=== PATIENT | female | born 1990 | race Two or more races ===

== ENCOUNTER 2020-08-19 19:40 | Inpatient (IN) | payer OTHER ==
[~2020-08-19] VITALS: Ht 165.1 cm; Wt 59.0 kg
[2020-08-19] MEDS ORDERED: PHOSPHASAL TAB1 EACH (19:54)
[2020-08-19] MEDS ORDERED: BACTRIM 400-801 EACH (19:55)
[2020-08-25] MEDS ORDERED: TRIAMCINOLONE AC5 GM TOP (08:52)
[2020-08-25] MEDS ORDERED: LORATADINE10 MG PO (08:52)
[2020-08-25] MEDS ORDERED: MEDROLPACK PO (08:52)
[2020-08-25] MEDS ORDERED: LUBRIDERM DAIL177 ML TOP (08:52)
[2020-08-25] MEDS ORDERED: FAMOTIDINE20 MG PO (08:52)
== END 2020-08-25 11:06 | disposition home or self-care (01) | DRG 690 ==
LOC: ER 19:40 → MEDJ 08-20 11:48 → SEC-K 08-20 11:48 → MEDJ 08-20 13:14
PROVIDERS: ADMIT Internal Medicine; ATTEND Internal Medicine
PROC: 8E0ZXY6 Isolation (ICD-10-PCS; principal; 2020-08-20)
DX: N39.0 Urinary tract infection, site not specified (principal); L51.3 Stevens-Johnson syndrome-toxic epidermal necrolysis overlap syndrome; Z20.822 Contact with and (suspected) exposure to COVID-19; I34.1 Nonrheumatic mitral (valve) prolapse

== ENCOUNTER 2021-01-05 08:00 | Outpatient (CLI) | payer OTHER ==
[~2021-01-05 08:00] MED LIST: BACTRIM 400-801 EACH; FAMOTIDINE20 MG PO; LORATADINE10 MG PO; LUBRIDERM DAIL177 ML TOP; MEDROLPACK PO; PHOSPHASAL TAB1 EACH; TRIAMCINOLONE AC5 GM TOP
== END 2021-01-05 08:30 | disposition home or self-care (01) ==
LOC: PPH VACUNA 08:00
PROVIDERS: ATTEND Emergency Medicine Pediatric Emergency Medicine
DX: Z23 Encounter for immunization (principal)

== ENCOUNTER → 2021-02-04 | Outpatient (CLI) | payer OTHER | END | disposition home or self-care (01) | LOC: PPH VACUNA 08:10 | PROVIDERS: ATTEND Emergency Medicine Pediatric Emergency Medicine | DX: Z23 Encounter for immunization (principal) ==

== ENCOUNTER 2022-07-26 16:24 | Emergency (ER) | payer OTHER ==
[~2022-07-26] VITALS: Ht 165.1 cm; Wt 59.0 kg
== END 2022-07-26 19:51 | disposition home or self-care (01) ==
LOC: ER 16:24
DX: J06.9 Acute upper respiratory infection, unspecified (principal); Z20.822 Contact with and (suspected) exposure to COVID-19; Z91.013 Allergy to seafood; Z88.2 Allergy status to sulfonamides; Z91.018 Allergy to other foods

== ENCOUNTER 2022-07-30 02:12 | Emergency (ER) | payer OTHER ==
[~2022-07-30] VITALS: Ht 165.1 cm; Wt 59.0 kg
[2022-07-30] MEDS ORDERED: MEDROL4 MG PO (02:53)
[2022-07-30] MEDS ORDERED: ZITHROMAX200 MG PO (02:54)
[2022-07-30] MEDS ORDERED: CONEX SOLUTION118 ML PO (02:54)
[2022-07-30] MEDS ORDERED: ZYNCOF 400-201 EACH PO (02:54)
[2022-07-30] MEDS ORDERED: ALLEGRA ALLERG180 MG PO (04:05)
== END 2022-07-30 04:14 | disposition home or self-care (01) ==
LOC: ER 02:12
DX: T78.40XA Allergy, unspecified, initial encounter (principal)